=== PATIENT | male | born 1990 | race Caucasian/White ===

== ENCOUNTER 2017-03-01 13:15 | Emergency (ER) | payer OTHER ==
[2017-03-01 13:22] VITALS: BP 159/110; PULSE 80; RESP 18; TEMP 97.9; O2SAT 97
--- NOTE | 2017-03-01 14:02 | EDPHY ---
H & P Time Seen by Provider: 03/01/17 13:45 HPI/ROS: CHIEF COMPLAINT: Possible bat exposure HISTORY OF PRESENT ILLNESS: This patient is a 26 year old male concerned regarding possible bat exposure yesterday evening around 8pm. He states he was coming out of his garage and noticed something fly by very close to him. He determined that the creature was a bat. The bat did not touch him. He did a Google search and became concerned he had been exposed to rabies, and presents today for evaluation. Smoking Status: Never smoked Physical Exam: Alert, anxious HEENT: normal inspection Chest: Normal respiratory rate Skin: Warm and dry Extremities: Normal inspection Constitutional: Initial Vital Signs Temperature (C) 36.6 C 03/01/17 13:18 Heart Rate 80 03/01/17 13:18 Respiratory Rate 18 03/01/17 13:18 Blood Pressure 159/110 H 03/01/17 13:18 O2 Sat (%) 97 03/01/17 13:18 O2 Delivery Mode Room Air Medical Decision Making ED Course/Re-evaluation: Rabies prophylaxis is not indicated in this patient. He had no contact with the bat. Departure - Departure Disposition: Home, Routine, Self-Care Clinical Impression: Concern regarding bat exposure Condition: Good Instructions: Rabies (ED) Additional Instructions: You do not need rabies prophylaxis following your recent encounter. You may follow up with your primary care doctor for continued concerns. Referrals: [facility] [Other] - As per Instructions
== END 2017-03-01 14:05 | disposition home or self-care (01) ==
DX: Z20.3 Contact with and (suspected) exposure to rabies (principal)

== ENCOUNTER 2017-03-03 15:25 | Emergency (ER) | payer OTHER ==
[2017-03-03 15:33] VITALS: TEMP 97.9
--- NOTE | 2017-03-03 16:15 | EDPHY ---
H & P Stated Complaint: BAT EXPOSURE HPI/ROS: HPI CHIEF COMPLAINT: Possible bat exposure. Seen here in the emergency room recently. HISTORY OF PRESENT ILLNESS: This patient 26-year-old male, presents emergency room for 2nd time stating that he would like rabies vaccination. The patient tells me that a few days ago he was putting his bicycle in his garage steps outside of his garage and something flew by him closely. He denies direct contact. He tells me that pretty sure it was a bat. He was seen here in the emergency room a few days ago for bat exposure at that time they did not feel that he needed rabies vaccination. Patient does tell me that he is unsure exactly about direct contact. Past Medical History: No significant medical history Past Surgical History: No significant surgical history Social History: Denies daily use of drugs alcohol tobacco products. Family History: Noncontributory ROS REVIEW OF SYSTEMS: A comprehensive 10 point review of systems is otherwise negative aside from elements mentioned in the history of present illness. Exam Constitutional appears well nontoxic triage nursing summary reviewed, vital signs reviewed, awake/alert. Eyes normal conjunctivae and sclera, EOMI, PERRLA. HENT normal inspection, atraumatic, moist mucus membranes, no epistaxis, neck supple/ no meningismus, no raccoon eyes. Respiratory clear to auscultation bilaterally, normal breath sounds, no respiratory distress, no wheezing. Cardiovascular rate normal, regular rhythm, no murmur, no edema, distal pulses normal. Gastrointestinal soft, non-tender, no rebound, no guarding, normal bowel sounds, no distension, no pulsatile mass. Genitourinary no CVA tenderness. Musculoskeletal no midline vertebral tenderness, full range of motion, no calf swelling, no tenderness of extremities, no meningismus, good pulses, neurovascularly intact. Skin pink, warm, & dry, no rash, skin atraumatic. Neurologic awake, alert and oriented x 3, AAOx3, moves all 4 extremities equally, motor intact, sensory intact, CN II-XII intact, normal cerebellar, normal vision, normal speech. Psychiatric normal mood/affect. Heme/Lymph/Immune no lymphadenopathy. Differential Diagnosis: Includes but is not limited to back exposure, rabies exposure. Need for rabies vaccination and series. Medical Decision Making: I did consult Infectious Disease. Given that the patient is back for 2nd time and stating that he may have had direct contact with the bat we will give him it the rabies vaccination and series. Patient is comfortable this. Also understands follow-up beaking clinic for rest of his series. Source: Patient - Medical/Surgical History Hx Asthma: No Hx Chronic Respiratory Disease: No Hx Diabetes: No Hx Cardiac Disease: No Hx Renal Disease: No Hx Cirrhosis: No Hx Alcoholism: No Hx HIV/AIDS: No Hx Splenectomy or Spleen Trauma: No Other PMH: Appy, Dermititis, Pre HTN - Social History Smoking Status: Never smoked Constitutional: Initial Vital Signs Temperature (C) 36.6 C 03/03/17 15:30 Heart Rate 83 03/03/17 15:30 Respiratory Rate 18 03/03/17 15:30 Blood Pressure 142/96 H 03/03/17 15:30 O2 Sat (%) 98 03/03/17 15:30 O2 Delivery Mode Room Air Allergies/Adverse Reactions: No Known Allergies Allergy (Unverified 03/03/17 15:30) Home Medications: Medication Instructions Recorded NK [No Known Home Meds] 03/03/17 Departure - Departure Disposition: Home, Routine, Self-Care Clinical Impression: Exposure to bat without known bite Condition: Good Instructions: Rabies (ED), Rabies Vaccine (ED), Rabies Immune Globulin (By injection) Referrals: MICHAEL Chisholm,. [Primary Care Provider] - As per Instructions [facility] ([facility],. [Edm Groups for Call Sched] - As per Instructions
[2017-03-03] MEDS ORDERED: RABIES VACC, HUMAN DIPLOID/PF 2.5 UNIT VIAL (RABAVERT) IM ONE (16:26)
[2017-03-03] MEDS ORDERED: RABIES IMMUNE GLOBULIN 300 UNIT/2 ML VIAL IM ONE (16:26)
[2017-03-03 17:56] VITALS: BP 140/108; PULSE 78; RESP 16; O2SAT 96
== END 2017-03-03 17:55 | disposition home or self-care (01) ==
DX: Z20.3 Contact with and (suspected) exposure to rabies (principal); I10 Essential (primary) hypertension; Z23 Encounter for immunization